=== PATIENT | female | born 1945 | race Caucasian/White ===

== ENCOUNTER 2017-08-27 11:33 | Outpatient (CLI) | payer MEDICARE ==
[2017-08-27] MEDS ORDERED: Iopamidol 370 76% 100 ML VIAL ONE (11:54)
--- NOTE | 2017-08-27 14:07 | CT ---
CT HEAD NONCONTRAST CTA ZUNI OF [place] WITH 3D VOLUME RENDERING: INDICATIONS: Headache. Head pressure for six months, progressive in intensity. FINDINGS: There is no evidence of acute intracranial hemorrhage, mass effect, or midline shift. There is multi focal white matter hypoattenuation bilaterally, indicating mild chronic microvascular ischemic diseas e with superimposed areas of chronic appearing encephalomalacia, notably at the posterior left cerebr al hemisphere and the right cerebellar hemisphere. There is a dominance of the imaged distal left vertebral artery. The basilar artery is patent. The bilateral posterior cerebral arteries reveal no significant stenosis or occlusion. Bilateral posteri or communicating arteries are unremarkable. No significant stenosis of either MCA. Bilateral AMBERLY an d region of anterior communicating artery are grossly unremarkable. Evaluation of the bilateral term inal carotid arteries reveals no high grade stenosis or occlusion with minimal vascular calcification seen. Incidental note of prominent mucosal thickening in the left maxillary sinus, in addition to s cattered areas of paranasal sinus mucosal thickening. IMPRESSION: 1. No significant abnormality of the samish of [place]. 2. Evidence of multifocal remote infarction, superimposed upon chronic microvascular ischemic diseas e. POS: [facility]
== END 2017-08-27 11:34 | disposition home or self-care (01) ==
LOC: CT 11:33
PROVIDERS: ATTEND Psychiatry & Neurology Neurology
DX: R51 Headache (principal)
CPT/HCPCS: 70496; 82565

== ENCOUNTER 2017-12-17 09:59 | Outpatient (CLI) | payer MEDICARE | END 2017-12-17 10:00 | disposition home or self-care (01) | LOC: BICMAMMO 09:59 | PROVIDERS: ATTEND Family Medicine | DX: Z13.820 Encounter for screening for osteoporosis (principal); Z78.0 Asymptomatic menopausal state; M85.80 Other specified disorders of bone density and structure, unspecified site | CPT/HCPCS: 77080 ==

== ENCOUNTER 2017-12-24 09:39 | Outpatient (CLI) | payer MEDICARE | END 2017-12-24 09:40 | disposition home or self-care (01) | LOC: DTY/OP 09:39 | PROVIDERS: ATTEND Family Medicine | DX: E11.69 Type 2 diabetes mellitus with other specified complication (principal) | CPT/HCPCS: 97802 ==

== ENCOUNTER 2019-01-11 08:40 | Outpatient (CLI) | payer MEDICARE ==
--- NOTE | 2019-01-27 10:07 | MMO ---
Bilateral MAMMO Bilat Screen [facility]. CLINICAL HISTORY: Patient is 73 years old and is seen for screening. The patient has the following family history of breast cancer: paternal aunt, at age 50. The patient has no personal history of cancer. VIEWS: The views performed were: bilateral craniocaudal with tomosynthesis and bilateral mediolateral oblique with tomosynthesis. FILMS COMPARED: The present examination has been compared to prior imaging studies performed at [facility] on 03/10/2014, 03/08/2015 and 05/01/2017. MAMMOGRAM FINDINGS: There are scattered fibroglandular densities. There are benign appearing calcifications seen in both breasts. There are also vascular calcifications. There are no suspicious masses, suspicious calcifications, or new areas of architectural distortion. IMPRESSION: THERE IS NO MAMMOGRAPHIC EVIDENCE OF MALIGNANCY. A ROUTINE FOLLOW-UP MAMMOGRAM IN 1 YEAR IS RECOMMENDED. THE RESULTS OF THIS EXAM WERE SENT TO THE PATIENT. ACR BI-RADS Category 2 - Benign finding MAMMOGRAPHY NOTE: 1. A negative mammogram report should not delay a biopsy if a dominant of clinically suspicious mass is present. 2. Approximately 10% to 15% of breast cancers are not detected by mammography. 3. Adenosis and dense breasts may obscure an underlying neoplasm.
== END 2019-01-11 08:41 | disposition home or self-care (01) ==
LOC: BICMAMMO 08:40
PROVIDERS: ATTEND Family Medicine
DX: Z12.31 Encounter for screening mammogram for malignant neoplasm of breast (principal); Z80.3 Family history of malignant neoplasm of breast
CPT/HCPCS: 77063; 77067

== ENCOUNTER 2019-10-25 09:18 | Outpatient (CLI) | payer MEDICARE ==
--- NOTE | 2019-10-25 10:16 | CT ---
CT BRAIN WITHOUT CONTRAST: Date: 10/25/2019 HISTORY: Migraine headaches. COMPARISON: 08/27/2017. 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 Changes of chronic small vessel ischemic disease are redemonstrated. The ventricular size is stable and the basilar cisterns are patent. No evidence of acute infarct, hemorrhage, midline shift, or abnormal extra-axial fluid collections ar e seen. The bony calvarium is intact. The visualized paranasal sinuses and mastoid air cells are well aerated. IMPRESSION: Chronic changes. No CT evidence of acute intracranial process. POS: OFF
== END 2019-10-25 09:19 | disposition home or self-care (01) ==
LOC: CT 09:18
DX: G43.009 Migraine without aura, not intractable, without status migrainosus (principal); F01.50 Vascular dementia, unspecified severity, without behavioral disturbance, psychotic disturbance, mood disturbance, and anxiety; G44.229 Chronic tension-type headache, not intractable
CPT/HCPCS: 70450

== ENCOUNTER 2020-06-27 14:01 | Outpatient (CLI) | payer MEDICARE ==
--- NOTE | 2020-06-27 15:43 | BD ---
Exam: DEXA Bone Density 06/27/20 HISTORY: Postmenopausal. Lumbar Spine: BMD (g/cm2) T-SCORE L1 0.956 -0.3 L2 1.037 +0.1 L3 0.954 -1.2 L4 0.999 -0.6 L1-L4 0.987 -0.5 Left Femoral Neck: 0.706 -1.3 Total Femur: 0.708 -1.9 Impression: Osteopenia of the left femoral neck and normal bone mineral density of the lumbar spine. Ten year fracture risk for major osteoporotic fracture is 9.9% and hip fracture of 1.5%. These fractu re probabilities are calculated for an untreated patient. POS: [facility]
--- NOTE | 2020-06-27 16:01 | MMO ---
Bilateral MAMMO Bilat Screen [facility]. CLINICAL HISTORY: Patient is 75 years old and is seen for screening. The patient has the following family history of breast cancer: paternal aunt, at age 50. The patient has no personal history of cancer. VIEWS: The views performed were: bilateral craniocaudal with tomosynthesis and bilateral mediolateral oblique with tomosynthesis. FILMS COMPARED: The present examination has been compared to prior imaging studies performed at [facility] on 01/11/2019, and at [facility] on 03/10/2014, 03/08/2015 and 05/01/2017. This study has been interpreted with the assistance of computer-aided detection. MAMMOGRAM FINDINGS: There are scattered fibroglandular densities. Benign calcifications are noted bilaterally. There are no suspicious masses, suspicious calcifications, or new areas of architectural distortion. IMPRESSION: THERE IS NO MAMMOGRAPHIC EVIDENCE OF MALIGNANCY. A ROUTINE FOLLOW-UP MAMMOGRAM IN 1 YEAR IS RECOMMENDED. THE RESULTS OF THIS EXAM WERE SENT TO THE PATIENT. ACR BI-RADS Category 2 - Benign finding MAMMOGRAPHY NOTE: 1. A negative mammogram report should not delay a biopsy if a dominant of clinically suspicious mass is present. 2. Approximately 10% to 15% of breast cancers are not detected by mammography. 3. Adenosis and dense breasts may obscure an underlying neoplasm. Reported by: ABEBE PETERSON MD Electonically Signed: [id number]
== END 2020-06-27 14:02 | disposition home or self-care (01) ==
LOC: BICMAMMO 14:01
PROVIDERS: ATTEND Family Medicine
DX: Z12.31 Encounter for screening mammogram for malignant neoplasm of breast (principal); Z13.820 Encounter for screening for osteoporosis; M85.852 Other specified disorders of bone density and structure, left thigh; Z80.3 Family history of malignant neoplasm of breast; Z78.0 Asymptomatic menopausal state
CPT/HCPCS: 77063; 77067; 77080

== ENCOUNTER 2021-07-03 08:52 | Outpatient (CLI) | payer MEDICARE | END 2021-07-03 08:53 | disposition home or self-care (01) | LOC: BICMAMMO 08:52 | PROVIDERS: ATTEND Family Medicine | DX: Z12.31 Encounter for screening mammogram for malignant neoplasm of breast (principal); Z80.3 Family history of malignant neoplasm of breast | CPT/HCPCS: 77063; 77067 ==

== ENCOUNTER 2021-11-27 11:56 | Inpatient (IN) | payer MEDICARE ==
[2021-11-27 12:39] LABS: #Eosinphils 0.2 thou/uL (0.0-0.7); #Monocytes 0.4 thou/uL (0.11-0.59); #Neutrophils 4.7 thou/uL (1.40-6.50); %Basophils 0.5 % (0.0-1.0); %Eosinophils 3.5 % (0.0-10.0); %Lymphocytes 15.4 % (21.0-51.0); %Monocytes 6.3 % (0.0-10.0); %Neutrophils 74.3 % (42.0-75.0); Mean Corpuscular Hemoglobin 25.9 pg (27.0-31.0); Mean Corpuscular Volume 86.5 fL (78.0-98.0); Mean Platelet Volume 8.2 fL (7.4-10.4); Platelet Count 267 thou/uL (130-400); RBC Distribution Width 15.3 % (11.5-14.5); Red Blood Cell (RBC) Count 3.47 mill/uL (4.20-5.40); White Blood Cell (WBC) Count 6.4 thou/uL (4.8-10.8)
[2021-11-27] MEDS ORDERED: Acetaminophen 325 MG TAB ONE (13:17)
[2021-11-27 13:33] LABS: ALT (SGPT) 12 U/L (8-55); AST (SGOT) 14 U/L (5-34); Albumin 3.6 g/dL (3.4-4.8); Alkaline Phosphatase 58 U/L (40-110); Anion Gap 13 mmol/L (10-20); BUN (Urea Nitrogen) 37 mg/dL (9.8-20.1); Bilirubin, Total 0.3 mg/dL (0.2-1.2); Calc. Creatinine Clearance 0 mL/min (70-130); Calcium 8.6 mg/dL (7.8-10.44); Carbon Dioxide 20 mmol/L (23-31); Chloride 110 mmol/L (98-107); Globulin 2.4 g/dL (2.4-3.5); Glucose 111 mg/dL (83-110); Potassium 4.6 mmol/L (3.5-5.1); Sodium 138 mmol/L (136-145)
[2021-11-27 14:14] LABS: Bilirubin Small (Negative); Blood, Urine Trace (Negative); Glucose, Urine (Dipstick) Negative (Negative); Ketone, Urine Negative (Negative); Leukocyte Small (Negative); Nitrite Positive (Negative); Protein, Urine (Dipstick) Trace mg/dL (Neg-Trace); Urobilinogen 0.2 mg/dL (Less than 2)
[2021-11-27 14:20] LABS: Bacteria/HPF 4+ HPF (None Seen); Clarity Hazy (Clear); RBC/HPF 0-3 HPF (0-3); Specific Gravity, Urine 1.022 (1.002-1.036); Squamous Epithelial 21-50 HPF (0-3)
[2021-11-27] MEDS ORDERED: cefTRIAXone\\ROCEPHIN 2 GM VIAL ONE (15:01)
[2021-11-27] MEDS ORDERED: Morphine 4 MG/ML VIAL ONE (16:03)
[2021-11-27] MEDS ORDERED: Ondansetron ODT 4 MG TAB SL PRN (17:30)
[2021-11-27] MEDS ORDERED: Acetaminophen 325 MG TAB PO PRN (17:30)
[2021-11-27] MEDS ORDERED: Ondansetron PF 4 MG/2 ML Vial IVP PRN (17:30)
[2021-11-27] MEDS ORDERED: Pantoprazole 40 MG VIAL IVP SCH (18:30)
[2021-11-27 19:11] LABS: Troponin I 0.019 ng/mL (< 0.028)
[2021-11-27 19:40] VITALS: BMI 24.4
[2021-11-27 21:56] LABS: Troponin I 0.057 ng/mL (< 0.028)
[2021-11-28 00:26] LABS: SARS-CoV-2 PCR by NAA Not Detected (NotDetected)
[2021-11-28] MEDS ORDERED: traMADol HCl 50 MG TAB PO SCH (01:58)
[2021-11-28] MEDS ORDERED: Aspirin Chewable 81 MG TAB PO SCH (09:00)
[2021-11-28] MEDS ORDERED: Enoxaparin Sodium 30 MG/0.3 ML SYRINGE SC SCH (09:00)
[2021-11-28] MEDS ORDERED: Acetaminophen ER (8hr) 650 MG TAB PO PRN (10:02)
[2021-11-28] MEDS: traMADol HCl 50 MG TAB PO PRN (10:33)
[2021-11-28] MEDS ORDERED: Gabapentin 300 MG CAP PO SCH (10:45)
[2021-11-28] MEDS ORDERED: Donepezil HCl 10 MG TAB PO SCH (10:45)
[2021-11-28] MEDS ORDERED: Atorvastatin Calcium 10 MG TAB PO SCH (10:45)
[2021-11-28] MEDS ORDERED: Levothyroxine Sodium 25 MCG TAB PO SCH (10:45)
[2021-11-28] MEDS ORDERED: SUMAtriptan Succinate 25 MG TAB PO SCH (14:00)
[2021-11-28] MEDS ORDERED: cefTRIAXone\\ROCEPHIN 1 GM in Sodium Chloride 0.9% 100 ML IVPB SCH (15:00)
[2021-11-28] MEDS ORDERED: Ondansetron PF 4 MG/2 ML Vial IVP PRN (16:33)
[2021-11-28] MEDS: Famotidine 20 MG TAB PO SCH (20:28)
[2021-11-28] MEDS: Topiramate 25 MG TAB PO SCH (20:28)
[2021-11-28] MEDS ORDERED: Non-Formulary Item 1 EACH (Diclofenac Sodium [Diclofenac Sodium] 75 MG Tablet.Dr) PO SCH (21:00)
[2021-11-29 04:13] LABS: #Basophils 0.1 thou/uL (0.0-0.2); #Eosinphils 0.1 thou/uL (0.0-0.7); #Lymphocytes 0.9 thou/uL (1.20-3.40); #Monocytes 0.3 thou/uL (0.11-0.59); #Neutrophils 2.8 thou/uL (1.40-6.50); %Basophils 1.8 % (0.0-1.0); %Eosinophils 2.9 % (0.0-10.0); %Lymphocytes 20.9 % (21.0-51.0); %Monocytes 7.8 % (0.0-10.0); %Neutrophils 66.8 % (42.0-75.0); Hemoglobin 8.2 g/dL (12.0-16.0); Mean Corpuscular HGB CONC 29.5 g/dL (32.0-36.0); Mean Corpuscular Hemoglobin 25.5 pg (27.0-31.0); Mean Corpuscular Volume 86.3 fL (78.0-98.0); Mean Platelet Volume 8.2 fL (7.4-10.4); Platelet Count 211 thou/uL (130-400); RBC Distribution Width 15.2 % (11.5-14.5); White Blood Cell (WBC) Count 4.2 thou/uL (4.8-10.8)
[2021-11-29 04:29] LABS: Anion Gap 12 mmol/L (10-20); BUN (Urea Nitrogen) 17 mg/dL (9.8-20.1); Calc. Creatinine Clearance 49 mL/min (70-130); Calcium 8.5 mg/dL (7.8-10.44); Carbon Dioxide 20 mmol/L (23-31); Chloride 111 mmol/L (98-107); Glucose 102 mg/dL (83-110); Potassium 3.9 mmol/L (3.5-5.1); Sodium 139 mmol/L (136-145)
[2021-11-29] MEDS: Levothyroxine Sodium 25 MCG TAB PO SCH (09:00)
[2021-11-29] MEDS: Magnesium Oxide 400 MG TAB PO SCH (09:00)
[2021-11-29] MEDS ORDERED: CHOLECALCIFEROL PO SCH (09:00)
[2021-11-29] MEDS ORDERED: CALCIUM CARBONATE PO SCH (09:00)
[2021-11-29] MEDS ORDERED: Non-Formulary Item 1 EACH (Lansoprazole [Lansoprazole] 30 MG Capsule.Dr) PO SCH (09:00)
[2021-11-29] MEDS: Topiramate 25 MG TAB PO SCH ×2 (09:00→21:05)
[2021-11-29] MEDS ORDERED: CALCIUM LACTATE PO SCH (09:00)
[2021-11-29] MEDS ORDERED: Non-Formulary Item 1 EACH (Magnesium Oxide [Magnesium] 400 MG Capsule) PO SCH (09:00)
[2021-11-29] MEDS: Enoxaparin Sodium 40 MG/0.4 ML SYRINGE SC SCH (09:00)
[2021-11-29] MEDS: Calcium Carbonate 600 MG + Vit D TAB PO SCH (09:01)
[2021-11-29] MEDS: Aspirin 81 mg Enteric Coated Tablet PO SCH (09:01)
[2021-11-29] MEDS ORDERED: Nitrofurantoin Monohyd/M-Cryst 100 MG CAP PO SCH ×2 (09:30→21:00)
[2021-11-29] MEDS ORDERED: Ciprofloxacin 500 MG TAB PO SCH (10:15)
[2021-11-29] MEDS: Ciprofloxacin 500 MG TAB PO SCH (21:05)
[2021-11-29] MEDS: Famotidine 20 MG TAB PO SCH (21:05)
[2021-11-30 04:21] LABS: Anion Gap 11 mmol/L (10-20); BUN (Urea Nitrogen) 17 mg/dL (9.8-20.1); Calc. Creatinine Clearance 47 mL/min (70-130); Calcium 8.2 mg/dL (7.8-10.44); Carbon Dioxide 22 mmol/L (23-31); Chloride 111 mmol/L (98-107); Glucose 92 mg/dL (83-110); Potassium 3.7 mmol/L (3.5-5.1); Sodium 140 mmol/L (136-145)
[2021-11-30 04:24] LABS: #Eosinphils 0.2 thou/uL (0.0-0.7); #Lymphocytes 0.9 thou/uL (1.20-3.40); #Monocytes 0.3 thou/uL (0.11-0.59); #Neutrophils 2.3 thou/uL (1.40-6.50); %Basophils 0.9 % (0.0-1.0); %Eosinophils 5.8 % (0.0-10.0); %Monocytes 8.8 % (0.0-10.0); %Neutrophils 60.6 % (42.0-75.0); Hemoglobin 8.6 g/dL (12.0-16.0); Mean Corpuscular HGB CONC 30.1 g/dL (32.0-36.0); Mean Corpuscular Hemoglobin 26.1 pg (27.0-31.0); Mean Corpuscular Volume 86.6 fL (78.0-98.0); Mean Platelet Volume 8.5 fL (7.4-10.4); Platelet Count 208 thou/uL (130-400); RBC Distribution Width 15.1 % (11.5-14.5); Red Blood Cell (RBC) Count 3.31 mill/uL (4.20-5.40); White Blood Cell (WBC) Count 3.8 thou/uL (4.8-10.8)
[2021-11-30] MEDS: Ciprofloxacin 500 MG TAB PO SCH ×2 (05:50→20:34)
[2021-11-30] MEDS: Topiramate 25 MG TAB PO SCH ×2 (09:34→20:35)
[2021-11-30] MEDS: Calcium Carbonate 600 MG + Vit D TAB PO SCH (09:34)
[2021-11-30] MEDS: Enoxaparin Sodium 40 MG/0.4 ML SYRINGE SC SCH (09:34)
[2021-11-30] MEDS: Levothyroxine Sodium 25 MCG TAB PO SCH (09:35)
[2021-11-30] MEDS: Aspirin 81 mg Enteric Coated Tablet PO SCH (09:35)
[2021-11-30] MEDS: Magnesium Oxide 400 MG TAB PO SCH (09:35)
[2021-11-30] MEDS: traMADol HCl 50 MG TAB PO PRN (20:34)
[2021-11-30] MEDS: Famotidine 20 MG TAB PO SCH (20:35)
[2021-12-01 04:44] LABS: #Eosinphils 0.3 thou/uL (0.0-0.7); #Monocytes 0.4 thou/uL (0.11-0.59); #Neutrophils 1.9 thou/uL (1.40-6.50); %Basophils 0.4 % (0.0-1.0); %Eosinophils 8.1 % (0.0-10.0); %Lymphocytes 26.9 % (21.0-51.0); %Monocytes 11.4 % (0.0-10.0); %Neutrophils 53.1 % (42.0-75.0); Hemoglobin 8.3 g/dL (12.0-16.0); Mean Corpuscular HGB CONC 30.3 g/dL (32.0-36.0); Mean Corpuscular Hemoglobin 26.3 pg (27.0-31.0); Mean Corpuscular Volume 86.8 fL (78.0-98.0); Mean Platelet Volume 8.5 fL (7.4-10.4); Platelet Count 210 thou/uL (130-400); RBC Distribution Width 15.2 % (11.5-14.5); Red Blood Cell (RBC) Count 3.15 mill/uL (4.20-5.40); White Blood Cell (WBC) Count 3.6 thou/uL (4.8-10.8)
[2021-12-01 05:08] LABS: Anion Gap 12 mmol/L (10-20); BUN (Urea Nitrogen) 17 mg/dL (9.8-20.1); Calc. Creatinine Clearance 51 mL/min (70-130); Calcium 8.2 mg/dL (7.8-10.44); Carbon Dioxide 19 mmol/L (23-31); Chloride 112 mmol/L (98-107); Glucose 85 mg/dL (83-110); Potassium 3.7 mmol/L (3.5-5.1); Sodium 139 mmol/L (136-145)
[2021-12-01] MEDS: Ciprofloxacin 500 MG TAB PO SCH ×2 (05:14→20:52)
[2021-12-01] MEDS: Topiramate 25 MG TAB PO SCH ×2 (08:38→20:53)
[2021-12-01] MEDS: Levothyroxine Sodium 25 MCG TAB PO SCH (08:38)
[2021-12-01] MEDS: Aspirin 81 mg Enteric Coated Tablet PO SCH (08:38)
[2021-12-01] MEDS: Magnesium Oxide 400 MG TAB PO SCH (08:38)
[2021-12-01] MEDS: Calcium Carbonate 600 MG + Vit D TAB PO SCH (08:38)
[2021-12-01] MEDS: Enoxaparin Sodium 40 MG/0.4 ML SYRINGE SC SCH (08:38)
[2021-12-01] MEDS ORDERED: Artificial Tear Sol 15 ML BOT EA EYE PRN (10:25)
[2021-12-01] MEDS ORDERED: Senokot S 8.6-50 MG TAB PO SCH (10:30)
[2021-12-01] MEDS ORDERED: Electrolyte Replacement Protocol 1 EACH FS PRN (16:15)
[2021-12-01] MEDS: Famotidine 20 MG TAB PO SCH (20:51)
[2021-12-01] MEDS: Senokot S 8.6-50 MG TAB PO SCH (20:52)
[2021-12-01] MEDS: Saccharomyces boulardii 250 MG CAP PO SCH (20:52)
[2021-12-01] MEDS: Folic Acid 1 MG TAB PO SCH (20:53)
[2021-12-01] MEDS: Cyanocobalamin (Vitamin B-12) 1,000 MCG TAB PO SCH (20:53)
[2021-12-02] MEDS: Ciprofloxacin 500 MG TAB PO SCH ×2 (05:30→19:40)
[2021-12-02 05:43] LABS: Anion Gap 12 mmol/L (10-20); BUN (Urea Nitrogen) 19 mg/dL (9.8-20.1); Calc. Creatinine Clearance 44 mL/min (70-130); Calcium 8.6 mg/dL (7.8-10.44); Carbon Dioxide 21 mmol/L (23-31); Chloride 111 mmol/L (98-107); Glucose 106 mg/dL (83-110); Magnesium 2.2 mg/dL (1.6-2.6); Potassium 3.6 mmol/L (3.5-5.1); Sodium 140 mmol/L (136-145)
[2021-12-02] MEDS ORDERED: Acetaminophen ER (8hr) 650 MG TAB PO PRN (09:25)
[2021-12-02] MEDS ORDERED: Senokot 8.6 MG TAB PO PRN (09:30)
[2021-12-02] MEDS: Enoxaparin Sodium 40 MG/0.4 ML SYRINGE SC SCH (09:35)
[2021-12-02] MEDS: Multivit, Therapeutic 1 TAB PO SCH (09:36)
[2021-12-02] MEDS: Magnesium Oxide 400 MG TAB PO SCH (09:36)
[2021-12-02] MEDS: Calcium Carbonate 600 MG + Vit D TAB PO SCH (09:36)
[2021-12-02] MEDS: Levothyroxine Sodium 25 MCG TAB PO SCH (09:37)
[2021-12-02] MEDS: Aspirin 81 mg Enteric Coated Tablet PO SCH (09:37)
[2021-12-02] MEDS: Topiramate 25 MG TAB PO SCH ×2 (09:37→20:42)
[2021-12-02] MEDS: Senokot S 8.6-50 MG TAB PO SCH (09:44)
[2021-12-02] MEDS: traMADol HCl 50 MG TAB PO PRN (18:04)
[2021-12-02] MEDS: Saccharomyces boulardii 250 MG CAP PO SCH (20:42)
[2021-12-02] MEDS: Folic Acid 1 MG TAB PO SCH (20:42)
[2021-12-02] MEDS: Famotidine 20 MG TAB PO SCH (20:42)
[2021-12-02] MEDS: Cyanocobalamin (Vitamin B-12) 1,000 MCG TAB PO SCH (20:43)
[2021-12-03] MEDS: Ciprofloxacin 500 MG TAB PO SCH (05:34)
[2021-12-03] MEDS: Calcium Carbonate 600 MG + Vit D TAB PO SCH (09:12)
[2021-12-03] MEDS: Aspirin 81 mg Enteric Coated Tablet PO SCH (09:12)
[2021-12-03] MEDS: Multivit, Therapeutic 1 TAB PO SCH (09:13)
[2021-12-03] MEDS: Levothyroxine Sodium 25 MCG TAB PO SCH (09:13)
[2021-12-03] MEDS: Enoxaparin Sodium 40 MG/0.4 ML SYRINGE SC SCH (09:13)
[2021-12-03] MEDS: Magnesium Oxide 400 MG TAB PO SCH (09:13)
[2021-12-03] MEDS: traMADol HCl 50 MG TAB PO PRN (09:25)
[2021-12-03] MEDS: Topiramate 25 MG TAB PO SCH (10:06)
[2021-12-03 12:46] VITALS: BP 106/59; TEMP 97.2
== END 2021-12-03 15:15 | disposition home health service (06) | DRG 690 ==
LOC: ERS 11:56 → 2NO 15:24 → OBSVTOIN 11-29 11:41
PROVIDERS: ADMIT Emergency Medicine; ATTEND Internal Medicine
DX: N39.0 Urinary tract infection, site not specified (principal); N17.9 Acute kidney failure, unspecified; I95.1 Orthostatic hypotension; S42.034A Nondisplaced fracture of lateral end of right clavicle, initial encounter for closed fracture; G43.909 Migraine, unspecified, not intractable, without status migrainosus; F03.90 Unspecified dementia, unspecified severity, without behavioral disturbance, psychotic disturbance, mood disturbance, and anxiety; E78.5 Hyperlipidemia, unspecified; E03.9 Hypothyroidism, unspecified; Z66 Do not resuscitate; W19.XXXA Unspecified fall, initial encounter; S60.221A Contusion of right hand, initial encounter; B96.20 Unspecified Escherichia coli [E. coli] as the cause of diseases classified elsewhere; N18.30 Chronic kidney disease, stage 3 unspecified; D63.1 Anemia in chronic kidney disease; K21.9 Gastro-esophageal reflux disease without esophagitis; K59.00 Constipation, unspecified; I08.1 Rheumatic disorders of both mitral and tricuspid valves; E11.22 Type 2 diabetes mellitus with diabetic chronic kidney disease; Z20.822 Contact with and (suspected) exposure to COVID-19; Z88.5 Allergy status to narcotic agent; I12.9 Hypertensive chronic kidney disease with stage 1 through stage 4 chronic kidney disease, or unspecified chronic kidney disease; Z86.73 Personal history of transient ischemic attack (TIA), and cerebral infarction without residual deficits; Z88.0 Allergy status to penicillin; Z90.49 Acquired absence of other specified parts of digestive tract; Y92.008 Other place in unspecified non-institutional (private) residence as the place of occurrence of the external cause
CPT/HCPCS: 36415; 70450; 72125; 80048; 80053; 81003; 81015; 83735; 84484; 85025; 87077; 87086; 87186; 93005; 93010; 93306; 94760; 96365; 96372; 96375; C9113; G0378; J0696; J1650; J2270; J2405; J3490; U0003; U0005

== ENCOUNTER 2022-10-11 06:00 | Day surgery (SDC) | payer MEDICARE ==
[2022-10-10 11:27] VITALS: BMI 19.7
[2022-10-11] MEDS ORDERED: ePHEDrine 50 MG/ML VIAL ONE (07:58)
[2022-10-11] MEDS ORDERED: PROPOFOL 200 MG/20 ML VIAL ONE (07:58)
[2022-10-11] MEDS ORDERED: Lidocaine 1% PF 5 ML VIAL ONE (07:58)
== END 2022-10-11 09:08 | disposition home or self-care (01) ==
LOC: SDC 06:00
PROVIDERS: ATTEND Internal Medicine
PROC: 0DJ08ZZ Inspection of Upper Intestinal Tract, Via Natural or Artificial Opening Endoscopic (ICD-10-PCS; principal; 2022-10-11)
PROC: 0DJD8ZZ Inspection of Lower Intestinal Tract, Via Natural or Artificial Opening Endoscopic (ICD-10-PCS; 2022-10-11)
DX: D50.9 Iron deficiency anemia, unspecified (principal); K21.00 Gastro-esophageal reflux disease with esophagitis, without bleeding; Q43.8 Other specified congenital malformations of intestine; K57.30 Diverticulosis of large intestine without perforation or abscess without bleeding; F03.90 Unspecified dementia, unspecified severity, without behavioral disturbance, psychotic disturbance, mood disturbance, and anxiety; E11.9 Type 2 diabetes mellitus without complications; I10 Essential (primary) hypertension; E78.00 Pure hypercholesterolemia, unspecified; Z79.82 Long term (current) use of aspirin; Z79.890 Hormone replacement therapy; Z79.899 Other long term (current) drug therapy; Z88.0 Allergy status to penicillin; Z88.5 Allergy status to narcotic agent; Z98.84 Bariatric surgery status
CPT/HCPCS: J2704; J3490

== ENCOUNTER 2024-03-11 07:37 | Outpatient (CLI) | payer MEDICARE | END 2024-03-11 07:38 | disposition home or self-care (01) | LOC: SCSMRI 07:37 | PROVIDERS: ATTEND Family Medicine | DX: E27.8 Other specified disorders of adrenal gland (principal) | CPT/HCPCS: 74183 ==

== ENCOUNTER 2024-05-20 09:33 | Day surgery (SDC) | payer MEDICARE ==
[2024-05-20 09:53] LABS: #Basophils 0.08 10x3/uL (0.0-0.2); %Basophils 1.6 % (0.0-1.0); %Eosinophils 3.1 % (0.0-10.0); %Lymphocytes 23.6 % (21.0-51.0); %Neutrophils 65.3 % (42.0-75.0); Hematocrit 42.3 % (36.0-47.0); Hemoglobin 13.3 g/dL (12.0-16.0); Mean Corpuscular HGB CONC 31.4 g/dL (32.0-36.0); Mean Corpuscular Hemoglobin 32.5 pg (27.0-31.0); Mean Corpuscular Volume 103.4 fL (78.0-98.0); Mean Platelet Volume 10.1 fL (7.4-10.4); Platelet Count 249 10x3/uL (130-400); Red Blood Cell (RBC) Count 4.09 mill/uL (4.20-5.40)
[2024-05-20 10:01] LABS: Prothrombin Time 12.9 sec (12.0-14.7)
[2024-05-20 10:02] LABS: PTT 33.4 sec (22.9-36.1)
[2024-05-20] MEDS ORDERED: fentaNYL 50 mcg/mL 1 mL Vial ONE (11:19)
[2024-05-20] MEDS ORDERED: Midazolam HCl 2 mg/2 ml Vial ONE (11:19)
== END 2024-05-20 16:30 | disposition home or self-care (01) ==
LOC: CT 09:33
PROVIDERS: ATTEND Family Medicine
PROC: 0TB04ZX Excision of Right Kidney, Percutaneous Endoscopic Approach, Diagnostic (ICD-10-PCS; principal; 2024-05-20)
DX: D35.01 Benign neoplasm of right adrenal gland (principal); E27.8 Other specified disorders of adrenal gland; R19.09 Other intra-abdominal and pelvic swelling, mass and lump; E11.51 Type 2 diabetes mellitus with diabetic peripheral angiopathy without gangrene; I12.9 Hypertensive chronic kidney disease with stage 1 through stage 4 chronic kidney disease, or unspecified chronic kidney disease; N18.31 Chronic kidney disease, stage 3a; E11.22 Type 2 diabetes mellitus with diabetic chronic kidney disease; G72.0 Drug-induced myopathy; T46.6X5A Adverse effect of antihyperlipidemic and antiarteriosclerotic drugs, initial encounter; E66.9 Obesity, unspecified; E03.9 Hypothyroidism, unspecified; E78.2 Mixed hyperlipidemia; D50.9 Iron deficiency anemia, unspecified; Z88.0 Allergy status to penicillin; Z68.21 Body mass index [BMI] 21.0-21.9, adult; Z88.5 Allergy status to narcotic agent; Z79.899 Other long term (current) drug therapy
CPT/HCPCS: 50200; 77012; 82962; 85025; 85610; 85730; 88333; 88334; J2250; J3010; 36416; 88305; 88313; 88341; 88342; 99152; 99153

== ENCOUNTER 2025-04-26 12:49 | Inpatient (IN) | payer MEDICARE ==
[2025-04-26 14:56] VITALS: BMI 24.1
[2025-04-26] MEDS ORDERED: Ondansetron PF 4 MG/2 ML Vial IVP PRN (15:32)
[2025-04-26] MEDS ORDERED: Guaifenesin DM 100-10/5 ML UDCUP PO PRN (15:32)
[2025-04-26] MEDS ORDERED: Sucralfate 1 GM TAB PO PRN (16:13)
[2025-04-26 16:19] LABS: #Basophils Less than 0.03 10x3/uL (0.0-0.2); #Eosinophils 0.09 10x3/uL (0.0-0.7); #Monocytes 0.46 10x3/uL (0.11-0.59); #Neutrophils 7.30 10x3/uL (1.40-6.50); %Basophils 0.1 % (0.0-1.0); %Eosinophils 1.1 % (0.0-10.0); %Lymphocytes 6.8 % (21.0-51.0); %Monocytes 5.4 % (0.0-10.0); %Neutrophils 86.1 % (42.0-75.0); Hematocrit 28.7 % (36.0-47.0); Hemoglobin 8.7 g/dL (12.0-16.0); Mean Corpuscular Hemoglobin 33.0 pg (27.0-31.0); Mean Corpuscular Volume 108.7 fL (78.0-98.0); Platelet Count 356 10x3/uL (130-400); Red Blood Cell (RBC) Count 2.64 mill/uL (4.20-5.40); White Blood Cell (WBC) Count 8.48 10x3/uL (4.8-10.8)
[2025-04-26 16:32] LABS: ALT (SGPT) 20 U/L (Less than 34); AST (SGOT) 21 U/L (11-34); Albumin 1.9 g/dL (3.1-4.5); Alkaline Phosphatase 113 U/L (40-110); Anion Gap 11 mmol/L (10-20); BUN (Urea Nitrogen) 17 mg/dL (9.8-20.1); Bilirubin, Total 0.5 mg/dL (0.3-1.2); Calc. Creatinine Clearance 59 mL/min (70-130); Calcium 7.7 mg/dL (7.8-10.44); Carbon Dioxide 23 mmol/L (23-31); Chloride 112 mmol/L (98-107); Globulin 2.6 g/dL (2.4-3.5); Glucose 104 mg/dL (83-110); Potassium 3.3 mmol/L (3.5-5.1); Sodium 143 mmol/L (136-145)
[2025-04-26] MEDS ORDERED: Dextrose 50% Abboject 50 ML SYRINGE SLOW IVP PRN (16:37)
[2025-04-26] MEDS ORDERED: Glucagon 1 MG/ML KIT IM PRN (16:37)
[2025-04-26 17:40] LABS: Bacteria/HPF None Seen HPF (None Seen); CAUTI Indications for Culture Alt mental st,lethar; Glucose, Urine (Dipstick) Normal (Negative); Leukocyte Negative Leu/uL (Negative); Protein, Urine (Dipstick) Negative (Neg-Trace); RBC/HPF 0-3 HPF (0-3); Specific Gravity, Urine 1.012 (1.002-1.036); WBC/HPF 0-3 HPF (0-3)
[2025-04-26 17:43] LABS: Urine Culture Reflex No No
[2025-04-26 17:44] LABS: Anion Gap 10 mmol/L (10-20); BUN (Urea Nitrogen) 17 mg/dL (9.8-20.1); Calc. Creatinine Clearance 63 mL/min (70-130); Calcium 7.8 mg/dL (7.8-10.44); Carbon Dioxide 24 mmol/L (23-31); Chloride 110 mmol/L (98-107); Glucose 90 mg/dL (83-110); Potassium 3.2 mmol/L (3.5-5.1); Sodium 141 mmol/L (136-145)
[2025-04-26 18:11] LABS: #Basophils Less than 0.03 10x3/uL (0.0-0.2); #Eosinophils 0.12 10x3/uL (0.0-0.7); #Monocytes 0.49 10x3/uL (0.11-0.59); #Neutrophils 6.82 10x3/uL (1.40-6.50); %Basophils 0.2 % (0.0-1.0); %Eosinophils 1.5 % (0.0-10.0); %Lymphocytes 7.7 % (21.0-51.0); %Monocytes 6.0 % (0.0-10.0); %Neutrophils 84.0 % (42.0-75.0); Burr Cells SLIGHT = 2-5 cells HPF (0-1); Hematocrit 29.9 % (36.0-47.0); Hemoglobin 8.8 g/dL (12.0-16.0); Macrocytosis MODERATE=16-30 cells HPF (0-5); Mean Corpuscular Hemoglobin 32.5 pg (27.0-31.0); Mean Corpuscular Volume 110.3 fL (78.0-98.0); Platelet Adequacy Comment Platelets Normal; Platelet Count 367 10x3/uL (130-400); Polychromasia SLIGHT = 2-3 cells HPF (0-2); Red Blood Cell (RBC) Count 2.71 mill/uL (4.20-5.40); White Blood Cell (WBC) Count 8.13 10x3/uL (4.8-10.8)
[2025-04-26] MEDS: Acetaminophen 325 MG TAB PO PRN (18:29)
[2025-04-26] MEDS: Methocarbamol 500 MG TAB PO PRN (18:29)
[2025-04-26] MEDS ORDERED: Famotidine/PF 20 mg/2ml Vial SLOW IVP SCH (21:00)
[2025-04-26] MEDS: Senokot S 8.6-50 MG TAB PO SCH (21:55)
[2025-04-26] MEDS: Cholecalciferol 1,000 UNITS (25 MCG) TAB PO SCH (21:55)
[2025-04-26] MEDS: Famotidine 20 MG TAB PO SCH (21:56)
[2025-04-26] MEDS: Folic Acid 1 MG TAB PO SCH (21:56)
[2025-04-26] MEDS: Memantine 5 MG TAB PO SCH (21:56)
[2025-04-27] MEDS: Pantoprazole 40 MG DR.TAB PO SCH (08:23)
[2025-04-27] MEDS: Cyanocobalamin (Vitamin B-12) 1,000 MCG TAB PO SCH (08:24)
[2025-04-27 09:03] LABS: Hematocrit 34.1 % (36.0-47.0); Hemoglobin 10.0 g/dL (12.0-16.0); Mean Corpuscular Hemoglobin 32.8 pg (27.0-31.0); Mean Corpuscular Volume 111.8 fL (78.0-98.0); Platelet Count 385 10x3/uL (130-400); Red Blood Cell (RBC) Count 3.05 mill/uL (4.20-5.40); White Blood Cell (WBC) Count 8.29 10x3/uL (4.8-10.8)
[2025-04-27 09:17] LABS: Anion Gap 12 mmol/L (10-20); BUN (Urea Nitrogen) 12 mg/dL (9.8-20.1); Calc. Creatinine Clearance 64 mL/min (70-130); Calcium 7.9 mg/dL (7.8-10.44); Carbon Dioxide 20 mmol/L (23-31); Chloride 113 mmol/L (98-107); Glucose 106 mg/dL (83-110); Magnesium 2.1 mg/dL (1.6-2.6); Potassium 4.3 mmol/L (3.5-5.1); Sodium 141 mmol/L (136-145)
[2025-04-27 09:21] LABS: #Basophils 0.04 10x3/uL (0.0-0.2); #Eosinophils 0.11 10x3/uL (0.0-0.7); #Monocytes 0.45 10x3/uL (0.11-0.59); #Neutrophils 7.05 10x3/uL (1.40-6.50); %Basophils 0.5 % (0.0-1.0); %Eosinophils 1.3 % (0.0-10.0); %Lymphocytes 7.1 % (21.0-51.0); %Monocytes 5.4 % (0.0-10.0); %Neutrophils 85.1 % (42.0-75.0)
[2025-04-27 09:22] LABS: Anisocytosis SLIGHT = 6-15 cells HPF (0-5); Burr Cells SLIGHT = 2-5 cells HPF (0-1); Macrocytosis SLIGHT = 6-15 cells HPF (0-5); Platelet Adequacy Comment Platelets Normal; Poikilocytosis SLIGHT = 6-15 cells HPF (0-5); Polychromasia SLIGHT = 2-3 cells HPF (0-2)
[2025-04-27] MEDS ORDERED: Iopamidol 370 76% 100 ML VIAL ONE (10:26)
[2025-04-28 04:02] LABS: #Basophils 0.06 10x3/uL (0.0-0.2); #Eosinophils 0.26 10x3/uL (0.0-0.7); #Monocytes 0.61 10x3/uL (0.11-0.59); #Neutrophils 6.86 10x3/uL (1.40-6.50); %Basophils 0.7 % (0.0-1.0); %Eosinophils 3.0 % (0.0-10.0); %Lymphocytes 8.7 % (21.0-51.0); %Monocytes 7.1 % (0.0-10.0); %Neutrophils 80.0 % (42.0-75.0); Hematocrit 34.3 % (36.0-47.0); Hemoglobin 10.1 g/dL (12.0-16.0); Mean Corpuscular Hemoglobin 33.1 pg (27.0-31.0); Mean Corpuscular Volume 112.5 fL (78.0-98.0); Platelet Count 364 10x3/uL (130-400); Red Blood Cell (RBC) Count 3.05 mill/uL (4.20-5.40); White Blood Cell (WBC) Count 8.58 10x3/uL (4.8-10.8)
[2025-04-28 04:08] LABS: Anion Gap 12 mmol/L (10-20); BUN (Urea Nitrogen) 12 mg/dL (9.8-20.1); Calc. Creatinine Clearance 74 mL/min (70-130); Calcium 8.1 mg/dL (7.8-10.44); Carbon Dioxide 19 mmol/L (23-31); Chloride 112 mmol/L (98-107); Glucose 84 mg/dL (83-110); Potassium 4.0 mmol/L (3.5-5.1); Sodium 139 mmol/L (136-145)
[2025-04-28] MEDS: Pantoprazole 40 MG DR.TAB PO SCH (20:26)
[2025-04-29 04:22] LABS: #Basophils 0.04 10x3/uL (0.0-0.2); #Eosinophils 0.20 10x3/uL (0.0-0.7); #Monocytes 0.47 10x3/uL (0.11-0.59); #Neutrophils 4.63 10x3/uL (1.40-6.50); %Basophils 0.7 % (0.0-1.0); %Eosinophils 3.4 % (0.0-10.0); %Lymphocytes 9.2 % (21.0-51.0); %Monocytes 8.0 % (0.0-10.0); %Neutrophils 78.4 % (42.0-75.0); Anion Gap 9 mmol/L (10-20); BUN (Urea Nitrogen) 11 mg/dL (9.8-20.1); Calc. Creatinine Clearance 71 mL/min (70-130); Calcium 8.1 mg/dL (7.8-10.44); Carbon Dioxide 24 mmol/L (23-31); Chloride 112 mmol/L (98-107); Glucose 81 mg/dL (83-110); Hematocrit 33.7 % (36.0-47.0); Hemoglobin 9.9 g/dL (12.0-16.0); Mean Corpuscular Hemoglobin 32.7 pg (27.0-31.0); Mean Corpuscular Volume 111.2 fL (78.0-98.0); Platelet Count 390 10x3/uL (130-400); Potassium 4.0 mmol/L (3.5-5.1); Red Blood Cell (RBC) Count 3.03 mill/uL (4.20-5.40); Sodium 141 mmol/L (136-145); White Blood Cell (WBC) Count 5.90 10x3/uL (4.8-10.8)
[2025-04-30 04:07] LABS: #Basophils 0.04 10x3/uL (0.0-0.2); #Eosinophils 0.15 10x3/uL (0.0-0.7); #Monocytes 0.59 10x3/uL (0.11-0.59); #Neutrophils 4.77 10x3/uL (1.40-6.50); %Basophils 0.6 % (0.0-1.0); %Eosinophils 2.4 % (0.0-10.0); %Lymphocytes 10.6 % (21.0-51.0); %Monocytes 9.5 % (0.0-10.0); %Neutrophils 76.4 % (42.0-75.0); Hematocrit 32.4 % (36.0-47.0); Hemoglobin 9.6 g/dL (12.0-16.0); Mean Corpuscular Hemoglobin 32.7 pg (27.0-31.0); Mean Corpuscular Volume 110.2 fL (78.0-98.0); Platelet Count 373 10x3/uL (130-400); Red Blood Cell (RBC) Count 2.94 mill/uL (4.20-5.40); White Blood Cell (WBC) Count 6.24 10x3/uL (4.8-10.8)
[2025-04-30 04:40] LABS: Anion Gap 11 mmol/L (10-20); BUN (Urea Nitrogen) 9 mg/dL (9.8-20.1); Calc. Creatinine Clearance 71 mL/min (70-130); Calcium 7.6 mg/dL (7.8-10.44); Carbon Dioxide 20 mmol/L (23-31); Chloride 110 mmol/L (98-107); Glucose 82 mg/dL (83-110); Potassium 3.8 mmol/L (3.5-5.1); Sodium 137 mmol/L (136-145)
[2025-04-30 04:47] LABS: Anisocytosis SLIGHT = 6-15 cells HPF (0-5); Macrocytosis SLIGHT = 6-15 cells HPF (0-5); Platelet Adequacy Comment Platelets Normal; Polychromasia SLIGHT = 2-3 cells HPF (0-2)
[2025-05-01 04:46] LABS: #Basophils Less than 0.03 10x3/uL (0.0-0.2); #Eosinophils Less than 0.03 10x3/uL (0.0-0.7); #Monocytes 0.54 10x3/uL (0.11-0.59); #Neutrophils 4.95 10x3/uL (1.40-6.50); %Basophils 0.3 % (0.0-1.0); %Eosinophils 0.2 % (0.0-10.0); %Lymphocytes 8.3 % (21.0-51.0); %Monocytes 8.9 % (0.0-10.0); %Neutrophils 81.8 % (42.0-75.0); Hematocrit 30.0 % (36.0-47.0); Hemoglobin 9.2 g/dL (12.0-16.0); Mean Corpuscular Hemoglobin 32.7 pg (27.0-31.0); Mean Corpuscular Volume 106.8 fL (78.0-98.0); Platelet Count 327 10x3/uL (130-400); Red Blood Cell (RBC) Count 2.81 mill/uL (4.20-5.40); White Blood Cell (WBC) Count 6.05 10x3/uL (4.8-10.8)
[2025-05-01 04:58] LABS: Anion Gap 7 mmol/L (10-20); BUN (Urea Nitrogen) 9 mg/dL (9.8-20.1); Calc. Creatinine Clearance 77 mL/min (70-130); Calcium 7.5 mg/dL (7.8-10.44); Carbon Dioxide 21 mmol/L (23-31); Chloride 111 mmol/L (98-107); Glucose 102 mg/dL (83-110); Potassium 3.2 mmol/L (3.5-5.1); Sodium 136 mmol/L (136-145)
[2025-05-01 16:35] LABS: Potassium 3.7 mmol/L (3.5-5.1)
[2025-05-02 04:37] LABS: #Basophils 0.04 10x3/uL (0.0-0.2); #Eosinophils 0.07 10x3/uL (0.0-0.7); #Monocytes 0.46 10x3/uL (0.11-0.59); #Neutrophils 5.67 10x3/uL (1.40-6.50); %Basophils 0.6 % (0.0-1.0); %Eosinophils 1.0 % (0.0-10.0); %Lymphocytes 6.0 % (21.0-51.0); %Monocytes 6.9 % (0.0-10.0); %Neutrophils 84.8 % (42.0-75.0); Hematocrit 35.8 % (36.0-47.0); Hemoglobin 10.6 g/dL (12.0-16.0); Mean Corpuscular Hemoglobin 32.6 pg (27.0-31.0); Mean Corpuscular Volume 110.2 fL (78.0-98.0); Platelet Count 372 10x3/uL (130-400); Red Blood Cell (RBC) Count 3.25 mill/uL (4.20-5.40); White Blood Cell (WBC) Count 6.69 10x3/uL (4.8-10.8)
[2025-05-02 05:08] LABS: Anion Gap 13 mmol/L (10-20); BUN (Urea Nitrogen) 9 mg/dL (9.8-20.1); Calc. Creatinine Clearance 65 mL/min (70-130); Calcium 8.1 mg/dL (7.8-10.44); Carbon Dioxide 20 mmol/L (23-31); Chloride 110 mmol/L (98-107); Glucose 89 mg/dL (83-110); Iron 37 ug/dL (50-170); Iron Binding Capacity, Total 216 mcg/dL (265-497); Magnesium 2.0 mg/dL (1.6-2.6); Potassium 3.7 mmol/L (3.5-5.1); Sodium 139 mmol/L (136-145)
[2025-05-02 05:09] LABS: Iron 35 ug/dL (50-170); Iron Binding Capacity, Total 203 mcg/dL (265-497)
[2025-05-02 05:24] LABS: Anisocytosis SLIGHT = 6-15 cells HPF (0-5); Burr Cells SLIGHT = 2-5 cells HPF (0-1); Macrocytosis SLIGHT = 6-15 cells HPF (0-5); Platelet Adequacy Comment Platelets Normal; Polychromasia SLIGHT = 2-3 cells HPF (0-2)
[2025-05-02 05:47] LABS: Ferritin 108.57 ng/mL (10-291); Vitamin B12 Greater than 2000 pg/mL (211-911)
[2025-05-02] MEDS: Magnesium 2 GM/50 ML(in water) 2 GM in Premix 1 BAG IVPB SCH (09:37)
[2025-05-02 16:41] VITALS: BP 144/66; TEMP 98.7
== END 2025-05-02 20:30 | disposition swing bed (61) | DRG 641 ==
LOC: 2SE 13:42 → OBSVTOIN 04-28 09:54
PROVIDERS: ADMIT Family Medicine; ATTEND Internal Medicine
DX: E86.1 Hypovolemia (principal); D62 Acute posthemorrhagic anemia; I42.9 Cardiomyopathy, unspecified; E44.0 Moderate protein-calorie malnutrition; I95.9 Hypotension, unspecified; Z66 Do not resuscitate; F03.90 Unspecified dementia, unspecified severity, without behavioral disturbance, psychotic disturbance, mood disturbance, and anxiety; K21.9 Gastro-esophageal reflux disease without esophagitis; E78.5 Hyperlipidemia, unspecified; E03.9 Hypothyroidism, unspecified; E87.6 Hypokalemia; E83.42 Hypomagnesemia; E11.9 Type 2 diabetes mellitus without complications; D50.9 Iron deficiency anemia, unspecified; K29.70 Gastritis, unspecified, without bleeding; Z98.890 Other specified postprocedural states; Z98.84 Bariatric surgery status; Z79.899 Other long term (current) drug therapy; Z79.891 Long term (current) use of opiate analgesic; Z79.890 Hormone replacement therapy; Z90.89 Acquired absence of other organs; S72.001D Fracture of unspecified part of neck of right femur, subsequent encounter for closed fracture with routine healing; Z88.5 Allergy status to narcotic agent; Z88.0 Allergy status to penicillin
CPT/HCPCS: 36415; 36416; 71275; 80048; 81001; 82274; 82607; 82728; 83540; 83550; 83735; 84443; 84484; 85025; 93306; 97139; G0378; J3475; J7030; Q9967